=== PATIENT | female | born 1975 | race Two or more races ===

== ENCOUNTER 2017-04-12 02:41 | Emergency (ER) | payer BC ==
[~2017-04-12] VITALS: Ht 162.6 cm; Wt 51.7 kg
[2017-04-12] MEDS ORDERED: Oxycodone/Acetaminophen 5-325 ORAL ONE (04:00)
[2017-04-12 04:44] VITALS: BP 115/78
[2017-04-12] MEDS ORDERED: Ketorolac 60mg Inj IM ONE (04:45)
--- NOTE | 2017-04-12 04:48 | Emergency Room Report ---
History of Present Illness General Chief Complaint: Neck Pain Source: Patient Present Illness HPI 41YOF with acute left sided neck pain that woke her from sleep. Pain worse with movement, very stiff left side of neck. Did "heavy sports yesterday" including kickboxing. Denies any direct blow to left side of neck. Denies fever/chills, headache, vomiting. Never had this before. Didnt take anything for pain. Denies headache, change in vision, blurry vision, chest pain, SOB. Allergies: Coded Allergies: No Known Allergies (Unverified , 04/12/17) Patient History Past Medical History: none Past Surgical History: none Pertinent Family History: none Social History: Denies: alcohol use, drug use, smoking Last Menstrual Period: A WEEK AGO Now: No Immunizations: UTD Reviewed Nursing Documentation: PMH: Agreed, PSxH: Agreed Nursing Documentation-PMH Past Medical History: No Stated History Review of Systems All Other Systems: negative except mentioned in HPI Physical Exam Vital Signs Date Time Temp Pulse Resp B/P Pulse Ox O2 Delivery O2 Flow Rate FiO2 04/12/17 02:45 97.3 73 18 110/75 96 Room Air Sp02 EP Interpretation: reviewed, normal General Appearance: normal inspection, well appearing, alert, GCS 15, non-toxic , mild distress, other - Sitting on edge of bed, cant lie down. C/o severe neck stiffness Head: normocephalic, atraumatic Eyes: bilateral eye EOMI, bilateral eye PERRL ENT: normal ENT inspection, hearing grossly normal, normal voice Neck: normal inspection, no meningismus, no bony tend, other - Severe spasm, ttp to left posterior SCM Respiratory: normal inspection, lungs clear, normal breath sounds, no respiratory distress, no retraction, no wheezing Cardiovascular #1: regular rate, rhythm, no edema Gastrointestinal: normal inspection, normal bowel sounds, non tender, soft, no guarding, no hernia Genitourinary: no CVA tenderness Musculoskeletal: normal inspection, back normal, normal range of motion, Miguel Angel' s Sign negative Neurologic: normal inspection, alert, oriented x3, responsive, pond sawyer III-XII nml as tested, motor strength/tone normal, speech normal Psychiatric: normal inspection, judgement/insight normal, mood/affect normal Skin: normal inspection, normal color, no rash Lymphatic: normal inspection Medical Decision Making Diagnostic Impression: Primary Impression: Neck pain ER Course 41YOF with acute left sided neck spasm/pain VSS. Afebrile. Low suspicion for meningitis, SAH No focal neuro deficits, afebrile Improved ROM with Analgesia in the ED Advised continued analgesia, neck massage, ice vs heat, PMD followup DC home Last Vital Signs Date Time Temp Pulse Resp B/P Pulse Ox O2 Delivery O2 Flow Rate FiO2 04/12/17 02:45 97.3 73 18 110/75 96 Room Air Status: improved Disposition: HOME, SELF-CARE Scripts Oxycodone/Acetaminophen 5-325* (PERCOCET 5-325 MG TABLET*) 1 Each Tablet 1 TAB ORAL BID Y for Severe Breakthru Pain (>7) for 3 Days, #10 TAB Prov: GILMER SOUZA M.D. 04/12/17 Lidocaine (Lidoderm) 1 Each Adh..patch 1 PATCH TOPIC DAILY for 7 Days, #7 PATCH 0 Refills Patch(es) may remain in place for up to 12 hours in any 24-hour period. Prov: GILMER SOUZA M.D. 04/12/17 Referrals: NON PHYSICIAN (PCP) GILMER SOUZA M.D. April 12, 2017 04:48
[2017-04-12] MEDS ORDERED: LIDODERM700 M1 TOPIC (04:57)
[2017-04-12] MEDS ORDERED: PERCOCET 5-3251 EACH ORAL (04:57)
[2017-04-12 05:05] VITALS: BP 115/78
== END 2017-04-12 05:06 | disposition home or self-care (01) ==
LOC: EMR 03:04
DX: M54.2 Cervicalgia (principal)
CPT/HCPCS: 96372; 99284